=== PATIENT | female | born 1985 | race Two or more races ===

== ENCOUNTER 2020-03-24 14:24 | Emergency (ER) | payer SELFPAY ==
[2020-03-24 14:30] VITALS: BP 116/58
--- NOTE | 2020-03-24 14:56 | ER Document Report ---
ED Wound - General Chief Complaint: Laceration Stated Complaint: LACERATION/RIGHT MIDDLE FINGER Time Seen by Provider: 03/24/20 14:53 - HPI Notes: 34-year-old female presents to ED for evaluation of laceration to the right middle finger. Patient notes that she washed out the area and applied a bandaged. States that she believes she may be up to date on her vaccines for tetanus. Denies any of sensation or difficulties with range of motion. Denies any other complaints at this time. Past Medical History - General Information source: Patient - Social History Smoking Status: Never Smoker Family History: None - Past Medical History Cardiac Medical History: Reports: None Review of Systems - Review of Systems Notes: Constitutional: Negative for fever. HENT: Negative for sore throat. Eyes: Negative for visual changes. Cardiovascular: Negative for chest pain. Respiratory: Negative for shortness of breath. Gastrointestinal: Negative for abdominal pain, vomiting or diarrhea. Genitourinary: Negative for dysuria. Musculoskeletal: Negative for back pain. Skin: Negative for rash. + for finger laceration. Neurological: Negative for headaches, weakness or numbness. 5 point ROS negative except as marked above and in HPI. Physical Exam - Vital signs Vitals: Temp Pulse Resp BP Pulse Ox 97.9 F 63 16 116/58 L 100 03/24/20 14:27 03/24/20 14:27 03/24/20 14:27 03/24/20 14:27 03/24/20 14:27 General: No acute distress. Alert and oriented x3. Skin: No jaundice, pallor, or rashes. Warm and dry. Musculoskeletal: Right Hand: 0.26 laceration to 3rd volar digit. No swelling, erythema, ecchymosis, deformities or rashes. Strength and sensation is intact. No tenderness to palpation. No tenderness about a natomical snuffbox. Digits 1-5 with good flexion and extension about MCP, PIP and DIP joints. Brisk capillary refill. Radial pulses 2+ bilaterally. Wrist nontender with good range of motion. Neuro: GCS 15. Course - Re-evaluation Re-evalutation: 03/24/20 15:10 34-year-old female presents to ED for evaluation of 3rd digit laceration. Patient had full strength, sensation, and range of motion. The patient did not appear to have any tendon laceration. Laceration was repaired with dermabond. Patient was keep wound clean and dry. Apply sunscreen to wound when healed. Patient was advised to look for signs of infection, redness, swelling, drainage, fevers or chills, and return if these symptoms occur. Patient was advised to follow up with the primary physician and return if any worsening of symptoms. Understands course of management and is in agreement with care plan. - Vital Signs Vital signs: Temp Pulse Resp BP Pulse Ox 97.9 F 63 16 116/58 L 100 03/24/20 14:27 03/24/20 14:27 03/24/20 14:27 03/24/20 14:27 03/24/20 14:27 - Laboratory Results Critical Laboratory Results Reviewed: No Critical Results - Radiology Results Critical Radiology Results Reviewed: No Critical Results Discharge - Discharge Clinical Impression: Finger laceration Qualifiers: Encounter type: initial encounter Finger: middle finger Damage to nail status: without damage Foreign body presence: without foreign body Laterality: right Qualified Code(s): S61.212A - Laceration without foreign body of right middle finger without damage to nail, initial encounter Condition: Stable Disposition: HOME, SELF-CARE Instructions: Laceration Care ([facility]), Soap Cleansing ([facility])
== END 2020-03-24 15:04 | disposition home or self-care (01) ==
LOC: ER 14:24
DX: S61.212A Laceration without foreign body of right middle finger without damage to nail, initial encounter (principal); X58.XXXA Exposure to other specified factors, initial encounter
CPT/HCPCS: 99282